=== PATIENT | female | born 1980 | race Two or more races ===

== ENCOUNTER 2021-02-22 11:25 | Emergency (ER) | payer OTHER ==
[~2021-02-22] VITALS: Ht 157.5 cm; Wt 70.5 kg
[2021-02-22 12:50] VITALS: BP 122/76
[2021-02-22] MEDS ORDERED: ACETAMINOPHEN 500 MG TABLET PO ONE (13:00)
== END 2021-02-22 13:12 | disposition home or self-care (01) ==
LOC: EMS 11:27
DX: S30.0XXA Contusion of lower back and pelvis, initial encounter (principal); I10 Essential (primary) hypertension; Z11.1 Encounter for screening for respiratory tuberculosis; W19.XXXA Unspecified fall, initial encounter; Y93.89 Activity, other specified; Y92.89 Other specified places as the place of occurrence of the external cause; Y99.8 Other external cause status
CPT/HCPCS: 71045; 99283